=== PATIENT | female | born 1940 | race Caucasian/White ===

== ENCOUNTER 2017-06-05 20:03 | Observation (INO) ==
--- NOTE | 2017-06-05 20:27 | Emergency Department Note ---
Disposition Clinical Impression: Large hiatal hernia Dysphagia Qualifiers: Dysphagia type: unspecified Qualified Code(s): R13.10 - Dysphagia, unspecified Disposition: Admitted As Inpatient Condition: Serious Time of Disposition: 23:07 SOB HPI - General Chief Complaint: ED General Medical Stated Complaint: aspiration Time Seen by Provider: 06/05/17 20:15 Source: EMS Mode of arrival: EMS Limitations: no limitations Nursing Notes Reviewed: Yes Vital Signs Reviewed: Yes - History of Present Illness 68-year-old female on records review she has a history of hypertension, diabetes , dementia, Parkinson's, presents with cough shortness of breath frothy sputum. Patient states "I am coughing up phlegm" patient also had a dinner of the rice and chicken, she is unable to tolerate by mouth fluids and food right now because it comes back up and she coughs up phlegm. Patient reports epigastric/ retrosternal chest pain, she feels sharp localized, she states she felt this a few hours after eating. She denies fever chills weakness, she is a patient of a nursing facility squad report states that she is a DNR comfort care, looking at her records it looks like she does however I am unable to get a hold of the facility or any of her next of kin to discuss her DNR CC or DNR cca. Records review also shows that she was treated for acute pyelonephritis 2016 Pt Subjective Complaint: shortness of breath Severity: moderate Consistency/Duration: intermittent Known history of: diabetes, other (Parkinsons dementia) Treatment prior to arrival: none - Related Data Home Medications Medication Instructions Recorded Confirmed Ascorbic Acid [Vitamin C] 500 mg PO DAILY 08/12/15 08/12/15 Carbidopa/Levodopa 25/100 [Sinemet] 08/12/15 08/12/15 Cyanocobalamin (Vitamin B-12) 1,000 mcg PO 08/12/15 08/12/15 [Vitamin B-12] Dextromethorphan HBr/Quinidine 1 each PO QWEEK 08/12/15 08/12/15 [Nuedexta 20-10 mg Capsule] Dextromethorphan HBr/Quinidine 1 each PO QWEEK 08/12/15 08/12/15 [Nuedexta 20-10 mg Capsule] Donepezil HCl [Donepezil HCl Odt] 5 mg PO DAILY 08/12/15 08/12/15 Ergocalciferol (VITAMIN D2) 50,000 unit PO DAILY 08/12/15 08/12/15 [Vitamin D2 (50,000 UNIT)] Ferrous Sulfate 325 mg PO DAILY 08/12/15 08/12/15 Folic Acid 1 mg PO DAILY 08/12/15 08/12/15 Glycopyrrolate [Robinul] 1 mg PO BID 08/12/15 08/12/15 Lisinopril [Zestril] 10 mg PO DAILY 08/12/15 08/12/15 Promod 08/12/15 08/12/15 Rotigotine [Neupro] 08/12/15 08/12/15 Sennosides/Docusate Sodium [Senna 1 each PO DAILY 08/12/15 08/12/15 Plus] Previous Rx's Medication Instructions Recorded Cefdinir [Omnicef] 300 mg PO BID #20 capsule 07/18/15 Allergies Allergy/AdvReac Type Severity Reaction Status Date / Time No Known Allergies Allergy Verified 07/17/15 20:53 All systems ED: reviewed and negative except as stated. Review of Systems: As Per HPI Constitutional: Denies: fever, chills Cardiovascular: Denies: chest pain, palpitations Respiratory: Reports: cough, dyspnea Gastrointestinal: Reports: nausea Genitourinary: Denies: urgency, dysuria Musculoskeletal: Denies: back pain Integumentary: Denies: rash Neurological: Denies: headache Endocrine: Denies: fatigue Past Medical History - Past Medical History Attestation: Yes The following information was validated with the patient. Source: patient Medical history: Reports: dementia, hypertension Psychiatric history: Reports: depression - Social History Smoking Status: Never smoker Smokeless Tobacco Status: No Alcohol use: Reports: none Drug use: Reports: none Physical Exam Constitutional: Elderly female appears older than stated age. We will signs stable. Eyes: PERRLA, sclera anicteric ENT & Mouth: Frothy sputum coming out of the mouth. Patient is drooling. Neck: normal inspection, neck is supple Resp: Coarse breath sounds bilaterally. Transmitted upper airway sounds. CV: RRR, no m/g/r GI: normal inspection, soft, no guarding or rigidity Back: normal inspection, no tenderness to palpation Neuro: A&O3, ECS 15, CNII-XII grossly intact, BAKER MSK: no gross deformities, normal ROM UE and LE Skin: on limited exam, skin intact with no rashes or lesions - General Limitations: no limitations General appearance: alert Course Course Narrative: 68-year-old female DNR comfort care, discussed the patient's care with [facility], unable to get a hold of the patient's family, but she has been treated recently for with IV antibiotics for pyelonephritis, plan is to do basic workup chest x-ray, unable to tolerate by mouth fluids, possible esophageal foreign body. - Reevaluation(s) Reevaluation #1: I spoke with the patient's son, he agrees with supportive care even some limited interventions for comfort, is unclear about procedural or surgical, but would agree with NG tube placement, discussed the case at this time we do not feel the patient is indications for NG placement given protecting her airway sats on room air, discussed with Dr. Blevins who suggests NG tube placement, will consult surgeon Dr. Riley. Reevaluation #2: Called back Dr. Blevins, he states he will come by to evaluate the patient and determine about NG tube placement now or await surgical consult in AM, patient HD stable. Time: 22:57 - Consultations Consultation #1: Spoke with Dr. Riley, she states give IV glucagon after concern for esophageal foreign body or food bolus, may do NG tube, but if concern for Eso FB okay to wait at this time. Time: 22:30 Vital Signs Temperature 99 F 06/05/17 20:04 Pulse Rate 80 06/05/17 20:04 Respiratory Rate 18 06/05/17 20:04 Blood Pressure 183/103 06/05/17 20:04 O2 Sat by Pulse Oximetry 93 06/05/17 20:04 Temperature 98.3 F 06/05/17 23:22 Pulse Rate 87 06/05/17 22:19 Respiratory Rate 18 06/05/17 23:22 Blood Pressure 181/86 06/05/17 23:22 O2 Sat by Pulse Oximetry 94 06/05/17 22:19 Oxygen Delivery Oxygen Delivery Room Air Shortness of Breath/Dyspnea - MDM Narrative Medical decision making narrative: 68-year-old female with large hiatal hernia, gastroesophageal reflux up to the level of the thoracic inlet, after surgical medical consultation will admit the patient for observation, surgical consultation the morning, she is hemodynamically stable at the time of ED disposition. - Differential Diagnosis Likely: acute exacerbation of chronic obstructive airways disease - Medical Records Medical records reviewed: Yes I reviewed the patient's medical records. - Lab Data Lab results reviewed: Yes I reviewed the patient's lab results. Result diagrams: 06/05/17 20:37 06/05/17 20:37 Lab Results 06/05/17 06/05/17 06/05/17 Range/Units 20:37 20:37 20:37 WBC 9.0 (4.3-11.1) K/mcL RBC 4.52 (3.82-4.97) M/mcL Hgb 13.1 (11.5-15.4) g/dL Hct 39.7 (35.3-44.9) % MCV 87.8 (83.0-100.0) fL MCH 29.0 (28.0-33.3) pg MCHC 33.0 (31.6-35.5) g/dL RDW 14.0 (11.5-14.5) % Plt Count 280 (140-400) K/mcL MPV 10.0 (9.4-12.4) fL Immature Gran % 0.7 (0-4) % Seg Neutrophils % 72.6 % Lymphocytes % 22.1 % Monocytes % 3.5 % Eosinophils % 0.7 % Basophils % 0.4 % Neutrophils # 6.6 (1.6-8.9) K/mcL Lymphocytes # 2.0 (0.6-4.6) K/mcL Monocytes # 0.3 (0.0-1.3) K/mcL Eosinophils # 0.1 (0.0-0.6) K/mcL Basophils # 0.0 (0.0-0.2) K/mcL Sodium 138 (136-145) mEq/L Potassium 4.1 (3.5-4.5) mEq/L Chloride 103 (98-109) mEq/L Carbon Dioxide 24 (19-29) mEq/L BUN 14 (7-20) mg/dL Creatinine 0.72 (0.57-1.11) mg/dL Est GFR ( Amer) > 60 (> 60) Est GFR (Non-Af Amer) > 60 (> 60) BUN/Creatinine Ratio 19 (6-26) Glucose 129 H (70-99) mg/dL Calculated Osmolality 288 (280-300) Calcium 9.4 (8.6-10.8) mg/dL Troponin I 0.01 (0-0.03) ng/mL B-Natriuretic Peptide (0-100) pg/mL 06/05/17 Range/Units 20:37 WBC (4.3-11.1) K/mcL RBC (3.82-4.97) M/mcL Hgb (11.5-15.4) g/dL Hct (35.3-44.9) % MCV (83.0-100.0) fL MCH (28.0-33.3) pg MCHC (31.6-35.5) g/dL RDW (11.5-14.5) % Plt Count (140-400) K/mcL MPV (9.4-12.4) fL Immature Gran % (0-4) % Seg Neutrophils % % Lymphocytes % % Monocytes % % Eosinophils % % Basophils % % Neutrophils # (1.6-8.9) K/mcL Lymphocytes # (0.6-4.6) K/mcL Monocytes # (0.0-1.3) K/mcL Eosinophils # (0.0-0.6) K/mcL Basophils # (0.0-0.2) K/mcL Sodium (136-145) mEq/L Potassium (3.5-4.5) mEq/L Chloride (98-109) mEq/L Carbon Dioxide (19-29) mEq/L BUN (7-20) mg/dL Creatinine (0.57-1.11) mg/dL Est GFR ( Amer) (> 60) Est GFR (Non-Af Amer) (> 60) BUN/Creatinine Ratio (6-26) Glucose (70-99) mg/dL Calculated Osmolality (280-300) Calcium (8.6-10.8) mg/dL Troponin I (0-0.03) ng/mL B-Natriuretic Peptide 78 (0-100) pg/mL - Radiology Data Radiology results reviewed: Yes I reviewed the patient's radiology results. Chest X-Ray 06/05/17 20:19 IMPRESSION: 1. Large retrocardiac lucency probably represents a large hiatal hernia. 2. Cardiomegaly. 3. Otherwise, no acute abnormalities are seen in the chest. D/ / 06/05/2017 21:21:35 Reg Hidalgo MD / kasie Interpreting Provider: Reg Hidalgo MD Chest CT 06/05/17 21:16 IMPRESSION: Large hiatal hernia with near complete intrathoracic location of the stomach. There is severe gastroesophageal reflux of ingested material to the level of the thoracic inlet. D/ / 06/05/2017 21:56:06 Ruth Ann Bar MD / kasie Interpreting Provider: Ruth Ann Bar MD - EKG Data EKG attestation: Yes I reviewed and interpreted this EKG. EKG shows normal: Reports: sinus rhythm (89 bpm SD 159 QRS [address] segment elevations or depressions, sinus rhythm unchanged from previous EKG in 2013) Attestation Statement - Attestation Attestation: I examined this patient and my medical decision-making was reviewed with the Resident Physician. I agree with the documented findings, disposition and treatment plan as described except to the extent set forth below. Patient to ED for an ECF with dribbling and difficulty breathing. Onset today. States she will not eat. Patient has dementia, but she states she ate chicken and rice for dinner. She is afraid to eat now. On examination she sitting in bed. Her legs are contracted. She is drooling. Plan. Cardiac workup. Attempting to contact family at this time. Attempted by mouth challenge the patient states she is afraid to drink. X-ray and CT scan showed large hiatal hernia. She has good contents in her esophagus up to her thoracic inlet. NG tube contemplated. Concern as we are not sure why the patient has reflux of food contents into esophagus. Concern for possible stricture versus tumor. Concern for perforation of an NG tube was inserted. The patient is stable. She is in no respiratory distress. She is not aspirated. She will be kept nothing by mouth and admitted. Surgery is in consult.
[2017-06-05 20:45] LABS: Basophils % 0.4 %; Eosinophils # 0.1 K/mcL (0.0-0.6); Eosinophils % 0.7 %; Hematocrit 39.7 % (35.3-44.9); Hemoglobin 13.1 g/dL (11.5-15.4); Immature Granulocytes % 0.7 % (0-4); Lymphocytes % 22.1 %; Mean Corpuscular Volume 87.8 fL (83.0-100.0); Monocytes # 0.3 K/mcL (0.0-1.3); Monocytes % 3.5 %; Neutrophils # 6.6 K/mcL (1.6-8.9); Platelet Count 280 K/mcL (140-400); Red Blood Count 4.52 M/mcL (3.82-4.97); Segmented Neutrophils % 72.6 %
[2017-06-05 20:57] LABS: BUN/Creatinine Ratio 19 (6-26); Blood Urea Nitrogen 14 mg/dL (7-20); Calcium 9.4 mg/dL (8.6-10.8); Carbon Dioxide 24 mEq/L (19-29); Chloride 103 mEq/L (98-109); Glucose 129 mg/dL (70-99); Osmolality,Calculated 288 (280-300); Potassium 4.1 mEq/L (3.5-4.5); Sodium 138 mEq/L (136-145); eGFR For African Americans > 60 (> 60); eGFR For Non-African Americans > 60 (> 60)
[2017-06-05] MEDS ORDERED: Naloxone 0.4 MG/ML INJ IVP PRN (23:46)
--- NOTE | 2017-06-05 23:53 | Internal Med History&Physical ---
Date of Encounter: 06/06/17 Time of Encounter: 23:50 Assessment and Plan (1) Aspiration of food Current visit: Yes Status: Acute I suspect silent aspiration due to large hiatal hernia and food regurgitation. We will place patient nothing by mouth. We will ask respiratory therapy to suction the upper airways. Qualifiers: Encounter type: initial encounter Qualified Code(s): T17.890A - Other foreign object in other parts of respiratory tract causing asphyxiation, initial encounter (2) Parkinsons disease Current visit: Yes Status: Acute Resume her Sinemet when the patient tolerates oral diet. (3) DVT prophylaxis Current visit: Yes Status: Acute Subcutaneous heparin (4) Large hiatal hernia Current visit: Yes Status: Acute Large hiatal hernia evidenced by imaging studies. This could be causing dynamic gastric obstruction and vomiting with high risk of aspiration. Patient was given glucagon in the emergency department. Gen. surgery was consulted for consideration of emergent endoscopy with foreign body retrieval. Given the patient appeared stable and in no distress, it was decided that the patient does not currently require endoscopy and would likely benefit from conservative measures. (5) Dysphagia Current visit: Yes Status: Acute Dysphagia likely secondary to large hiatal hernia and esophageal obstruction. We will keep the patient nothing by mouth. Plan for upper endoscopy tomorrow by general surgery. Qualifiers: Dysphagia type: esophageal phase Qualified Code(s): R13.14 - Dysphagia, pharyngoesophageal phase Internal Medicine - H&P: HPI Chief complaint: Productive cough Admitted From: Emergency Dept Plans for Post Hospital Care: Transfer [facility] Facility History of present illness: Ms. Cerrato is a 76 year old female with multiple medical comorbidities including Parkinson's disease who was sent from the residential for evaluation of cough productive of white frothy sputum which started after dinner. Patient reported chest pain substernal sharp, moderate in intensity that started earlier this evening after she had a dinner of rice and chicken. Pain was also accompanied by production of frothy sputum. She also reports a faculty swallowing. Review of systems positive for tremors, drooling secondary to Parkinson's disease and memory impairment. Family history reviewed and found to be noncontributory Past Med Surg Social Fam HX - Past Medical History Medical history: dementia, hypertension Psychiatric history: depression - Social History Smoking Status: Never smoker Smokeless Tobacco Status: No Alcohol use: none Drug use: none - Family History Paternal Living Status: Unknown Hx Family Cardiac Disorders: No Hx Family Respiratory Disorders: Yes (tobacco abused) Hx Family Cancer: No Hx Family GI Disorders: No Hx Family Endocrine Disorder: No Hx Family Neuromuscular Disorders: No Hx Family Neurologic Disorders: No Hx Family HEENT Disorders: No Hx Family Autoimmune Disorders: No Internal Medicine - H&P: Meds Cefdinir [Omnicef] 300 mg PO BID #20 capsule 07/18/15 [Rx] Ascorbic Acid [Vitamin C] 500 mg PO DAILY 08/12/15 [History] Carbidopa/Levodopa 25/100 [Sinemet] 08/12/15 [History] Cyanocobalamin (Vitamin B-12) [Vitamin B-12] 1,000 mcg PO 08/12/15 [History] Dextromethorphan HBr/Quinidine [Nuedexta 20-10 mg Capsule] 1 each PO QWEEK 08/12 [History] Dextromethorphan HBr/Quinidine [Nuedexta 20-10 mg Capsule] 1 each PO QWEEK 08/12 [History] Donepezil HCl [Donepezil HCl Odt] 5 mg PO DAILY 08/12/15 [History] Ergocalciferol (VITAMIN D2) [Vitamin D2 (50,000 UNIT)] 50,000 unit PO DAILY 03/22 [History] Ferrous Sulfate 325 mg PO DAILY 08/12/15 [History] Folic Acid 1 mg PO DAILY 08/12/15 [History] Glycopyrrolate [Robinul] 1 mg PO BID 08/12/15 [History] Lisinopril [Zestril] 10 mg PO DAILY 08/12/15 [History] Promod 08/12/15 [History] Rotigotine [Neupro] 08/12/15 [History] Sennosides/Docusate Sodium [Senna Plus] 1 each PO DAILY 08/12/15 [History] Allergies No Known Allergies Allergy (Verified 07/17/15 20:53) All Systems PM: A 10-system review of systems was performed and is negative for pertinent findings except as documented above in the HPI. - Constitutional Vitals: Temp Pulse Resp BP Pulse Ox 98.3 F 87 18 181/86 94 06/05/17 23:22 06/05/17 22:19 06/05/17 23:22 06/05/17 23:22 06/05/17 22:19 General appearance: Present: A&O X 2 - Eye Eye exam: Present: PERRL, conjuntiva pink, sclera anicteric Pupils: Present: PERRL - Neck Neck exam general surgery: Present: supple, trachea midline. Absent: lymphadenopathy - Respiratory Respiratory exam: Present: rhonchi (Coarse breath sounds with upper airway gurgling sounds). Absent: accessory muscle use, rales, wheezes - Cardiovascular Cardiovascular exam: Present: RRR, +S1, +S2. Absent: diastolic murmur, gallop, rubs, systolic murmur - GI/Abdominal GI/Abdominal exam: Present: normal bowel sounds, soft, no peritoneal signs. Absent: distended, tenderness - Extremities Exam Extremities exam: Present: warm, radial pulses palpable and symetrical. Absent : calf tenderness, cyanotic, pedal edema - Skin Skin exam: Present: dry, intact Additional comments: Healed buttock decubitus ulcer Internal Med - H&P Results - Labs CBC & Chem 7: 06/05/17 20:37 06/05/17 20:37 - Impressions CT of the chest reviewed by myself shows a tortuous dilated dilated esophagus with food contents and large hiatal hernia containing the majority of the stomach.
[2017-06-06] MEDS ORDERED: Dextrose Gel 15 GM PO PRN ×2 (00:39)
[2017-06-06] MEDS ORDERED: *HR* Dextrose 50 % in Water (Syg) 50 ML SYRINGE IVP PRN (00:39)
[2017-06-06] MEDS ORDERED: D5% in Water 1,000 ML IVC PRN (00:39)
[2017-06-06] MEDS: D5% in 0.45% NACL 1,000 ML IVC SCH ×2 (01:55→18:05)
[2017-06-06 05:23] LABS: Basophils % 0.2 %; Hemoglobin 12.3 g/dL (11.5-15.4); Immature Granulocytes % 0.5 % (0-4); Lymphocytes % 7.7 %; Mean Corpuscular HGB Conc 32.4 g/dL (31.6-35.5); Mean Corpuscular Hemoglobin 28.6 pg (28.0-33.3); Mean Corpuscular Volume 88.4 fL (83.0-100.0); Mean Platelet Volume 10.8 fL (9.4-12.4); Monocytes # 0.3 K/mcL (0.0-1.3); Monocytes % 2.4 %; Neutrophils # 11.2 K/mcL (1.6-8.9); Platelet Count 291 K/mcL (140-400); Red Cell Distribution Width 14.1 % (11.5-14.5); Segmented Neutrophils % 89.2 %
[2017-06-06 05:40] LABS: BUN/Creatinine Ratio 21 (6-26); Blood Urea Nitrogen 14 mg/dL (7-20); Calcium 9.2 mg/dL (8.6-10.8); Carbon Dioxide 24 mEq/L (19-29); Chloride 101 mEq/L (98-109); Glucose 141 mg/dL (70-99); Magnesium 1.9 mg/dL (1.6-2.6); Osmolality,Calculated 285 (280-300); Potassium 4.2 mEq/L (3.5-4.5); Sodium 136 mEq/L (136-145); eGFR For African Americans > 60 (> 60); eGFR For Non-African Americans > 60 (> 60)
[2017-06-06] MEDS: Insulin LISPRO 300 UNITS/3 ML VIAL SQ SCH ×3 (06:22→20:16)
[2017-06-06] MEDS: Pantoprazole 40 MG VIAL IVP SCH (06:27)
--- NOTE | 2017-06-06 08:52 | Anesthesia Evaluation PreOp ---
Date of Encounter: 06/06/17 Time of Encounter: 08:50 - Past History Planned Operation: EGD Cardiac History: HTN (maintained on Lisinopril) Pulmonary History: Denies Any Significant HX [employer] History: Other (Parkinsonism maintained on Sinemet. Dementia maintained on Denezepil. Depression/Psuedobulbar Affect maitnained on Nuedexta [ Dextromethorphan/Quinidine]) Other Medical History: GERD (Lg Hiatal Hernia noted this admission) Anesthesia History: Past Anesthesia (Lumbar fixation, I&D/removal?? infected lumbar hardware,) Alcohol Use: none Drug use: none Medications and Allergies Cefdinir [Omnicef] 300 mg PO BID #20 capsule 07/18/15 [Rx] Ascorbic Acid [Vitamin C] 500 mg PO DAILY 08/12/15 [History] Carbidopa/Levodopa 25/100 [Sinemet] 08/12/15 [History] Cyanocobalamin (Vitamin B-12) [Vitamin B-12] 1,000 mcg PO 08/12/15 [History] Dextromethorphan HBr/Quinidine [Nuedexta 20-10 mg Capsule] 1 each PO QWEEK 08/12 [History] Dextromethorphan HBr/Quinidine [Nuedexta 20-10 mg Capsule] 1 each PO QWEEK 08/12 [History] Donepezil HCl [Donepezil HCl Odt] 5 mg PO DAILY 08/12/15 [History] Ergocalciferol (VITAMIN D2) [Vitamin D2 (50,000 UNIT)] 50,000 unit PO DAILY 03/22 [History] Ferrous Sulfate 325 mg PO DAILY 08/12/15 [History] Folic Acid 1 mg PO DAILY 08/12/15 [History] Glycopyrrolate [Robinul] 1 mg PO BID 08/12/15 [History] Lisinopril [Zestril] 10 mg PO DAILY 08/12/15 [History] Promod 08/12/15 [History] Rotigotine [Neupro] 08/12/15 [History] Sennosides/Docusate Sodium [Senna Plus] 1 each PO DAILY 08/12/15 [History] Allergies No Known Allergies Allergy (Verified 07/17/15 20:53) - Meds/Allergy Pre-op Review Medications Reviewed: Yes Allergies Reviewed: Yes Beta Blockers on Current Med List: No Anesthesia Results - Labs 06/06/17 03:06 06/06/17 03:06 Laboratory Tests 03/17/17 06/06/17 05:55 03:06 Est GFR (Non-Af Amer) > 60 Est Mean Plasma Glucose 100 Hemoglobin A1c 5.1 Laboratory Results Impressions Chest X-Ray 06/05/17 20:19 IMPRESSION: 1. Large retrocardiac lucency probably represents a large hiatal hernia. 2. Cardiomegaly. 3. Otherwise, no acute abnormalities are seen in the chest. D/ / 06/05/2017 21:21:35 Reg Hidalgo MD / kasie Interpreting Provider: Reg Hidalgo MD Chest CT 06/05/17 21:16 IMPRESSION: Large hiatal hernia with near complete intrathoracic location of the stomach. There is severe gastroesophageal reflux of ingested material to the level of the thoracic inlet. D/ / 06/05/2017 21:56:06 Ruth Ann Bar MD / kasie Interpreting Provider: Ruth Ann Bar MD Anesthesia Exam Vital Signs Temp Pulse Resp BP Pulse Ox 06/06/17 07:54 99.2 F 76 18 178/93 97 06/06/17 04:00 97.9 F 66 20 166/89 96 06/06/17 01:37 97 06/05/17 23:49 97.7 F 77 16 167/83 95 06/05/17 23:22 98.3 F 18 181/86 06/05/17 22:19 87 18 182/104 94 06/05/17 20:04 99 F 80 18 183/103 93 Intake and Output 06/05/17 06/06/17 06/06/17 23:59 07:59 15:59 Intake Total 0 / 0 0 / 0 Output Total 0 / 0 0 / 0 Balance 0 / 0 0 / 0 Intake: Oral 0 / 0 0 / 0 Output: Urine 0 / 0 0 / 0 Other: Weight 75.5 kg Blood Glucose* 239 119 Height: 5'5" Weight: 165# BMI= 28 NPO (# of Hours): MNoc - HEENT Pupil (Motor): Pupils equal Anesthesia Assess/Plan Modified Radha Scale for Level of Consciousness: Cooperative, oriented, and tranquil Anesthetic Plan: MAC Monitoring Plan: Standard Monitors Recovery Plan: PACU Anes Supervising Prov Stmt: Pt seen/evaluated, R&B Discussed, questions answered and consent obtained. Danielle Nash MD
--- NOTE | 2017-06-06 09:07 | General Surgery Consult Note ---
Date of Encounter: 06/06/17 Time of Encounter: 09:00 Assessment and Plan (1) HTN (hypertension) Current Visit: Yes Status: Chronic continue home medication Qualifiers: Hypertension type: essential hypertension Qualified Code(s): I10 - Essential (primary) hypertension (2) Large hiatal hernia Current Visit: Yes Status: Acute patient is tolerating liquids and her saliva will check an esophagram to see if there is any delay of flow of contrast into stomach, patient has expressed that she doesnt really want a surgery. I explained that if the stomach within her chest is causing an inflow obstruction it may need surgically repaired. If her dysphagia last evening was a one time deal (no previous complaints of dysphagia) and there is easy flow of contrast into the stomach we will advance her diet and see how she tolerates. This was discussed with patient and her son (on phone). (3) Dysphagia Current Visit: Yes Status: Resolved currently tolerating secretions and liquids Qualifiers: Dysphagia type: esophageal phase Qualified Code(s): R13.14 - Dysphagia, pharyngoesophageal phase (4) Parkinsons disease Current Visit: Yes Status: Acute ok continue home meds History of Present Illness Consult date: 06/06/17 Reason for consult: other History of present illness: Patient is a 76 yo female who presented to ED with chest pain after eating dinner at her long term. She had chicken and rice for dinner and per nursing she had emesis in ED with resultant food. CT scan was done which demonstrated a large intrathoracic stomach with possible fluid/contents in the thoracic esophagus. Per nursing the hospitalist attempted to place an NGT and got about 30cc gastric contents out and hit resistance and pulled the ngt. Today patient denies any chest discomfort and she is able to swallow her own secretions. She denies a history of dysphagia. Past Med Surg Social Fam HX - Past Medical History Source: patient, old records reviewed Medical history: hypertension, other (Parkinsons) Psychiatric history: anxiety, depression - Past Surgical History Surgical History: other (back surgery, cancerous skin lesion nose removed) - Social History Smoking Status: Never smoker Smokeless Tobacco Status: No Alcohol use: none Drug use: none - Family History Paternal Living Status: Unknown Hx Family Cardiac Disorders: No Hx Family Respiratory Disorders: Yes (tobacco abused) Hx Family Cancer: No Hx Family GI Disorders: No Hx Family Endocrine Disorder: No Hx Family Neuromuscular Disorders: No Hx Family Neurologic Disorders: No Hx Family HEENT Disorders: No Hx Family Autoimmune Disorders: No Medications and Allergies Cefdinir [Omnicef] 300 mg PO BID #20 capsule 07/18/15 [Rx] Ascorbic Acid [Vitamin C] 500 mg PO DAILY 08/12/15 [History] Carbidopa/Levodopa 25/100 [Sinemet] 08/12/15 [History] Cyanocobalamin (Vitamin B-12) [Vitamin B-12] 1,000 mcg PO 08/12/15 [History] Dextromethorphan HBr/Quinidine [Nuedexta 20-10 mg Capsule] 1 each PO QWEEK 08/12 [History] Dextromethorphan HBr/Quinidine [Nuedexta 20-10 mg Capsule] 1 each PO QWEEK 08/12 [History] Donepezil HCl [Donepezil HCl Odt] 5 mg PO DAILY 08/12/15 [History] Ergocalciferol (VITAMIN D2) [Vitamin D2 (50,000 UNIT)] 50,000 unit PO DAILY 03/22 [History] Ferrous Sulfate 325 mg PO DAILY 08/12/15 [History] Folic Acid 1 mg PO DAILY 08/12/15 [History] Glycopyrrolate [Robinul] 1 mg PO BID 08/12/15 [History] Lisinopril [Zestril] 10 mg PO DAILY 08/12/15 [History] Promod 08/12/15 [History] Rotigotine [Neupro] 08/12/15 [History] Sennosides/Docusate Sodium [Senna Plus] 1 each PO DAILY 08/12/15 [History] Allergies No Known Allergies Allergy (Verified 07/17/15 20:53) Review of Systems All systems PM: reviewed and no additional remarkable complaints except as stated All systems PM: A 10-system review of systems was performed and is negative for pertinent findings except as documented above in the HPI. General Surgery Exam Initial Vital Signs Temp Pulse Resp BP Pulse Ox 99 F 80 18 183/103 93 06/05/17 20:04 06/05/17 20:04 06/05/17 20:04 06/05/17 20:04 06/05/17 20:04 - General physical appearance well developed, well nourished, no distress, obese - Eyes PERRL, normal ocular movement - ENT normal mucosa, normocephalic - Neck trachea midline - Respiratory normal expansion, normal respiratory effort - Cardiovascular Cardiovascular exam: Present: RRR - Abdomen Abdomen general surgery: Present: bowel sounds present, soft, non tender. Absent: distended - Integumentary Integumentary general surgery: Present: warm and dry, no abnormal pigmentation - Neurologic Present: CN 2-12 grossly intact - Musculoskeletal Present: other (generalized weakness) - Psychiatric Psychiatric general surgery: Present: A&Ox3 Exam Initial Vital Signs Temp Pulse Resp BP Pulse Ox 99 F 80 18 183/103 93 06/05/17 20:04 06/05/17 20:04 06/05/17 20:04 06/05/17 20:04 06/05/17 20:04 Results - Labs 06/06/17 03:06 06/06/17 03:06 Abnormal lab results WBC 12.5 K/mcL (4.3-11.1) H 06/06/17 03:06 Neutrophils # 11.2 K/mcL (1.6-8.9) H 06/06/17 03:06 Glucose 141 mg/dL (70-99) H 06/06/17 03:06 Diabetes panel 06/06/17 Range/Units 03:06 Sodium 136 (136-145) mEq/L Potassium 4.2 (3.5-4.5) mEq/L Chloride 101 (98-109) mEq/L Carbon Dioxide 24 (19-29) mEq/L BUN 14 (7-20) mg/dL Creatinine 0.68 (0.57-1.11) mg/dL Glucose 141 H (70-99) mg/dL Calcium 9.2 (8.6-10.8) mg/dL Calcium panel 06/06/17 Range/Units 03:06 Calcium 9.2 (8.6-10.8) mg/dL Pituitary panel 06/06/17 Range/Units 03:06 Sodium 136 (136-145) mEq/L Potassium 4.2 (3.5-4.5) mEq/L Chloride 101 (98-109) mEq/L Carbon Dioxide 24 (19-29) mEq/L BUN 14 (7-20) mg/dL Creatinine 0.68 (0.57-1.11) mg/dL Glucose 141 H (70-99) mg/dL Calcium 9.2 (8.6-10.8) mg/dL Adrenal panel 06/06/17 Range/Units 03:06 Sodium 136 (136-145) mEq/L Potassium 4.2 (3.5-4.5) mEq/L Chloride 101 (98-109) mEq/L Carbon Dioxide 24 (19-29) mEq/L BUN 14 (7-20) mg/dL Creatinine 0.68 (0.57-1.11) mg/dL Glucose 141 H (70-99) mg/dL Calcium 9.2 (8.6-10.8) mg/dL All other labs normal. - Imaging CT scan - abdomen: report reviewed, image reviewed CT scan - pelvis: report reviewed, image reviewed Consult Discharge Plan - Plan Referrals: NONE,PCP [Primary Care Provider] -
[2017-06-06] MEDS: Levofloxacin 750 MG/150 ML 750 MG/150 ML BAG IVPB SCH (11:50)
--- NOTE | 2017-06-06 12:21 | Internal Med Progress Note ---
Date of Encounter: 06/06/17 Time of Encounter: 12:19 - Assessment and plan (1) Large hiatal hernia Current Visit: Yes Status: Acute Assessment and plan: Surgical evaluation appreciated f/u Esophagram, advance diet as per surgical recommendations after reviewing the esophagram results (2) Aspiration pneumonia Current Visit: Yes Status: Acute Assessment and plan: given leukocytosis and concern for aspiration s/p multiple vomiting episodes, will start empiric IV abx f/u blood cultures will repeat CXR as needed Qualifiers: Laterality: unspecified laterality Lung location: unspecified part of lung Qualified Code(s): J69.0 - Pneumonitis due to inhalation of food and vomit (3) Dysphagia Current Visit: Yes Status: Resolved Assessment and plan: NPO at this time pending surgical clearance Qualifiers: Dysphagia type: esophageal phase Qualified Code(s): R13.14 - Dysphagia, pharyngoesophageal phase (4) Aspiration of food Current Visit: Yes Status: Acute Qualifiers: Encounter type: initial encounter Qualified Code(s): T17.890A - Other foreign object in other parts of respiratory tract causing asphyxiation, initial encounter (5) Parkinsons disease Current Visit: Yes Status: Acute Assessment and plan: will restart home meds after verification (6) HTN (hypertension) Current Visit: Yes Status: Chronic Assessment and plan: Pt did not receive her home meds due to NPO status will restart home meds after verification and added Hydralazine 10gm IV q6h SBP> 150 will closely monitor BP Qualifiers: Hypertension type: essential hypertension Qualified Code(s): I10 - Essential (primary) hypertension (7) DVT prophylaxis Current Visit: Yes Status: Acute Assessment and plan: Heparin SQ - Subjective Interval history: Pt seen and examined at bedside. Resting in bed and denies any nausea, vomiting at this time. Pt evaluated by surgery in am and plan is to obtain esophagram and advance diet as per the study results. Pt noted to have large hiatal hernia causing obstruction with passage of food to the stomach, Dr. Riley recommends consultation with Dr. Dao in regards to repair. However at this time patient is refusing any surgical intervention. She is to remain NPO at this time - Constitutional Vitals: Temp Pulse Resp BP Pulse Ox 99.2 F 76 18 178/93 97 06/06/17 07:54 06/06/17 07:54 06/06/17 07:54 06/06/17 07:54 06/06/17 07:54 General appearance: Present: A&O X 3 (wheelchair bound at [place], contracted b /l LE), no acute distress, answers questions appropriately - Head Head exam: Present: atraumatic, normocephalic - Eye Eye exam: Present: conjuntiva pink, sclera anicteric - Respiratory Respiratory exam: Present: CTAB. Absent: accessory muscle use, rales, rhonchi, wheezes - Cardiovascular Cardiovascular exam: Present: RRR, +S1, +S2 - GI/Abdominal GI/Abdominal exam: Present: normal bowel sounds, soft, no peritoneal signs. Absent: distended, tenderness - Extremities Exam Extremities exam: Present: pedal edema, warm, radial pulses palpable and symetrical. Absent: calf tenderness - Neurological Exam Neurological exam: Present: alert, oriented X3 - Psychiatric Psychiatric exam: Present: normal affect, normal mood Internal Medicine: Result - Labs CBC & Chem 7: 06/06/17 03:06 06/06/17 03:06 Labs: Short CBC 06/06/17 Range/Units 03:06 WBC 12.5 H (4.3-11.1) K/mcL Hgb 12.3 (11.5-15.4) g/dL Hct 38.0 (35.3-44.9) % Plt Count 291 (140-400) K/mcL Neutrophils # 11.2 H (1.6-8.9) K/mcL BMP 06/06/17 03:06 Sodium 136 Potassium 4.2 Chloride 101 Carbon Dioxide 24 BUN 14 Creatinine 0.68 Glucose 141 H Calcium 9.2 Consult Discharge Plan - Plan Referrals: NONE,PCP [Primary Care Provider] -
[2017-06-06] MEDS: *HR* Heparin 5,000 UNIT/ML VIAL SQ SCH (18:10)
--- NOTE | 2017-06-06 19:00 | Electrocardiograph Report ---
[place] [id number] Test Date: 2017-06-05 Pat Name: Tatiana Cerrato Department: 103 Room: 2NE17 Gender: F House Cleaner: MARITA : 1940 Requested By: Solitario Angel Order Number: [id number] Reading MD: Paresh Berrios MD Measurements Intervals [place] Rate: 89 P: 25 MD: 159 QRS: -19 QRSD: 83 T: 7 QT: 363 QTc: 410 Interpretive Statements SINUS RHYTHM BASELINE ARTIFACT Poor R wave progression Electronically Signed On 06-06-2017 18:59:39 EDT by Paresh Berrios MD
[2017-06-06] MEDS: Ondansetron 4 MG/2 ML VIAL IVP PRN (20:15)
[2017-06-06] MEDS: *HR* Morphine 2 MG/ML SYRINGE IVP PRN (21:36)
[2017-06-07] MEDS: Insulin LISPRO 300 UNITS/3 ML VIAL SQ SCH ×4 (00:26→20:23)
[2017-06-07] MEDS: *HR* Morphine 2 MG/ML SYRINGE IVP PRN (05:06)
[2017-06-07] MEDS: *HR* Heparin 5,000 UNIT/ML VIAL SQ SCH ×2 (05:06→16:30)
[2017-06-07 05:13] LABS: Basophils % 0.3 %; Eosinophils % 0.1 %; Hematocrit 35.6 % (35.3-44.9); Hemoglobin 11.6 g/dL (11.5-15.4); Immature Granulocytes % 0.5 % (0-4); Lymphocytes # 1.5 K/mcL (0.6-4.6); Mean Corpuscular HGB Conc 32.6 g/dL (31.6-35.5); Mean Corpuscular Hemoglobin 28.9 pg (28.0-33.3); Mean Corpuscular Volume 88.6 fL (83.0-100.0); Mean Platelet Volume 10.5 fL (9.4-12.4); Monocytes # 0.5 K/mcL (0.0-1.3); Monocytes % 7.2 %; Neutrophils # 5.2 K/mcL (1.6-8.9); Platelet Count 270 K/mcL (140-400); Red Blood Count 4.02 M/mcL (3.82-4.97); Red Cell Distribution Width 14.2 % (11.5-14.5); Segmented Neutrophils % 70.9 %
[2017-06-07] MEDS: Pantoprazole 40 MG VIAL IVP SCH (05:22)
[2017-06-07 05:27] LABS: BUN/Creatinine Ratio 13 (6-26); Blood Urea Nitrogen 9 mg/dL (7-20); Calcium 9.2 mg/dL (8.6-10.8); Carbon Dioxide 27 mEq/L (19-29); Chloride 99 mEq/L (98-109); Glucose 115 mg/dL (70-99); Osmolality,Calculated 276 (280-300); Phosphorous 3.2 mg/dL (2.3-4.7); Potassium 4.3 mEq/L (3.5-4.5); Sodium 133 mEq/L (136-145); eGFR For African Americans > 60 (> 60); eGFR For Non-African Americans > 60 (> 60)
[2017-06-07] MEDS: Levofloxacin 750 MG/150 ML 750 MG/150 ML BAG IVPB SCH (08:14)
[2017-06-07] MEDS: Ondansetron 4 MG/2 ML VIAL IVP PRN (08:30)
--- NOTE | 2017-06-07 11:28 | Internal Med Progress Note ---
Date of Encounter: 06/07/17 Time of Encounter: 11:27 - Assessment and plan (1) Large hiatal hernia Current Visit: Yes Status: Acute Assessment and plan: Esophagram noted diet advanced to full liquids awaiting surgical follow up for d/c planning pt is from [facility] and will return to [place] after discharge (2) Aspiration pneumonia Current Visit: Yes Status: Acute Assessment and plan: continue empiric abx for 7 days (Day 2/7) f/u blood cultures will repeat CXR as needed Qualifiers: Aspiration pneumonia type: unspecified Laterality: unspecified laterality Lung location: unspecified part of lung Qualified Code(s): J69.0 - Pneumonitis due to inhalation of food and vomit (3) Dysphagia Current Visit: Yes Status: Resolved Assessment and plan: advanced to full liquids by surgery f/u speech therapy evaluation Qualifiers: Dysphagia type: esophageal phase Qualified Code(s): R13.14 - Dysphagia, pharyngoesophageal phase (4) Aspiration of food Current Visit: Yes Status: Acute Qualifiers: Encounter type: initial encounter Qualified Code(s): T17.890A - Other foreign object in other parts of respiratory tract causing asphyxiation, initial encounter (5) Parkinsons disease Current Visit: Yes Status: Acute Assessment and plan: continue home medications (6) HTN (hypertension) Current Visit: Yes Status: Chronic Assessment and plan: continue home medications Hydralazine 10gm IV q6h SBP>150 will closely monitor BP Qualifiers: Hypertension type: essential hypertension Qualified Code(s): I10 - Essential (primary) hypertension (7) DVT prophylaxis Current Visit: Yes Status: Acute Assessment and plan: Heparin SQ - Subjective Interval history: Pt seen and examined at bedside. Resting in bed and denies any discomfort at this time. Wheelchair and bedbound at baseline. Esophagram reported large hiatal hernia with entirely intrathoracic stomach. Delayed gastric emptying study consistent with gastroparesis, no evidence of gastric outlet obstruction. spontaneous gastroesophagel reflux. Diet advanced to full liquids by surgery. Awaiting follow up. - Constitutional Vitals: Temp Pulse Resp BP Pulse Ox 98.2 F 54 18 150/77 98 06/07/17 07:00 06/07/17 07:00 06/07/17 07:00 06/07/17 07:00 06/07/17 07:00 General appearance: Present: A&O X 3 (wheelchair bound at [place], contracted b /l LE), no acute distress, answers questions appropriately - Head Head exam: Present: atraumatic, normocephalic - Eye Eye exam: Present: conjuntiva pink, sclera anicteric - Respiratory Respiratory exam: Absent: respiratory distress, wheezes - Cardiovascular Cardiovascular exam: Present: RRR, +S1, +S2. Absent: diastolic murmur, gallop, rubs, systolic murmur - GI/Abdominal GI/Abdominal exam: Present: normal bowel sounds, soft, no peritoneal signs. Absent: distended, tenderness - Extremities Exam Extremities exam: Present: pedal edema (contracted b/l LE ), warm, radial pulses palpable and symetrical. Absent: calf tenderness - Neurological Exam Neurological exam: Present: alert, oriented X3 - Psychiatric Psychiatric exam: Present: normal affect, normal mood Internal Medicine: Result - Labs CBC & Chem 7: 06/07/17 04:17 06/07/17 04:17 Labs: Short CBC 06/07/17 Range/Units 04:17 WBC 7.4 (4.3-11.1) K/mcL Hgb 11.6 (11.5-15.4) g/dL Hct 35.6 (35.3-44.9) % Plt Count 270 (140-400) K/mcL Neutrophils # 5.2 (1.6-8.9) K/mcL BMP 06/07/17 04:17 Sodium 133 L Potassium 4.3 Chloride 99 Carbon Dioxide 27 BUN 9 Creatinine 0.68 Glucose 115 H Calcium 9.2 - Impressions Impressions KUB X-Ray 06/06/17 00:00 IMPRESSION: Progression of contrast material from the stomach into the small bowel. No evidence of gastric outlet obstruction. Large hiatal hernia with intrathoracic stomach. D/ / Ambrose Weir MD / Ambrose Weir MD Interpreting Provider: Ambrose Weir MD Barium Swallow X-Ray 06/06/17 09:21 IMPRESSION: 1. Large hiatal hernia with entirely intrathoracic stomach. 2. Delayed gastric emptying compatible with gastroparesis. No convincing fluoroscopic evidence of gastric outlet obstruction. 3. Spontaneous gastroesophageal reflux. D/ / Henrry Morales MD / Henrry Morales MD Interpreting Provider: Henrry Morales MD Consult Discharge Plan - Plan Additional Instructions: pcp requested Referrals: Indy Quach, CAREER TECHNICAL SUPERVISOR [Advanced Practice Nurse] -
--- NOTE | 2017-06-07 15:33 | General Surgery Progress Note ---
<Pj Miller - Last Filed: 06/07/17 15:30> Date of Encounter: 06/07/17 Time of Encounter: 15:30 - Assessment and Plan (1) Large hiatal hernia Current Visit: Yes Status: Acute Patient declines to have surgery Advance diet as tolerated to recommendations of speech therapy She can follow up with us in the future if she decides to pursue surgery Surgery will sign off at this time. Thank you for involving us in this patient' s care. Please feel free to contact us with any questions. (2) Dysphagia Current Visit: Yes Status: Resolved See plan of care above. Qualifiers: Dysphagia type: esophageal phase Qualified Code(s): R13.14 - Dysphagia, pharyngoesophageal phase (3) DVT prophylaxis Current Visit: Yes Status: Acute Continue heparin subq Subjective Patient reports: no new complaints, feels better, tolerating liquids well, flatus, bowel movement, afebrile Objective Vital Signs - Last 8 Hours Temp Pulse Resp BP Pulse Ox 06/07/17 15:00 97.6 F 74 16 147/71 96 Intake and Output 06/06/17 06/07/17 06/07/17 23:59 07:59 15:59 Intake Total 237 / 237 1550 / 1550 350 / 350 Output Total 0 / 0 0 / 0 Balance 237 / 237 1550 / 1550 350 / 350 Intake: IV Fluids 1000 / 1000 150 / 150 D5% And 0.45% Nacl 1000 1000 / 1000 Ml Bag 1,000 ML @ 75 mls/ hr IVC .[id number] RANULFO Rx#: [id number] Levaquin Premix 750mg/150 150 / 150 mL 750 mg In 150 ml @ 100 mls/hr IVPB DAILY RANULFO Rx#:[id number] Oral 0 / 0 550 / 550 200 / 200 Other 237 / 237 Output: Urine 0 / 0 0 / 0 Other: Meal Dinner Lunch Percent of Meal Consumed 0% Stool Size Smear Smear Stool Consistency soft loose Stool Color Black Green # Urine Diapers 1 # Bowel Movements 1 1 # Bowel Movement Diapers 1 Weight 75.5 kg 75.5 kg Blood Glucose* 138 138 99 Patient Weight 06/07/17 23:59 Weight 75.5 kg - General physical appearance well developed, well nourished, no distress - Eyes normal ocular movement - ENT atraumatic, normocephalic - Neck Neck exam: trachea midline - Respiratory normal expansion, normal respiratory effort - Cardiovascular Cardiovascular exam: Present: RRR - Abdomen Abdomen: Present: bowel sounds present, soft, non tender - Musculoskeletal normal posture - Psychiatric speech is normal - Labs 06/07/17 04:17 06/07/17 04:17 Diabetes panel 06/07/17 Range/Units 04:17 Sodium 133 L (136-145) mEq/L Potassium 4.3 (3.5-4.5) mEq/L Chloride 99 (98-109) mEq/L Carbon Dioxide 27 (19-29) mEq/L BUN 9 (7-20) mg/dL Creatinine 0.68 (0.57-1.11) mg/dL Glucose 115 H (70-99) mg/dL Calcium 9.2 (8.6-10.8) mg/dL Calcium panel 06/07/17 Range/Units 04:17 Calcium 9.2 (8.6-10.8) mg/dL Phosphorus 3.2 (2.3-4.7) mg/dL Pituitary panel 06/07/17 Range/Units 04:17 Sodium 133 L (136-145) mEq/L Potassium 4.3 (3.5-4.5) mEq/L Chloride 99 (98-109) mEq/L Carbon Dioxide 27 (19-29) mEq/L BUN 9 (7-20) mg/dL Creatinine 0.68 (0.57-1.11) mg/dL Glucose 115 H (70-99) mg/dL Calcium 9.2 (8.6-10.8) mg/dL Adrenal panel 06/07/17 Range/Units 04:17 Sodium 133 L (136-145) mEq/L Potassium 4.3 (3.5-4.5) mEq/L Chloride 99 (98-109) mEq/L Carbon Dioxide 27 (19-29) mEq/L BUN 9 (7-20) mg/dL Creatinine 0.68 (0.57-1.11) mg/dL Glucose 115 H (70-99) mg/dL Calcium 9.2 (8.6-10.8) mg/dL Consult Discharge Plan - Plan Additional Instructions: pcp requested Referrals: Indy Quach CNP [Advanced Practice Nurse] - <Kamini Riley - Last Filed: 06/07/17 17:42> Date of Encounter: 06/07/17 - Assessment and Plan (1) HTN (hypertension) Current Visit: Yes Status: Chronic Qualifiers: Hypertension type: essential hypertension Qualified Code(s): I10 - Essential (primary) hypertension (2) Large hiatal hernia Current Visit: Yes Status: Acute patient does not want surgery tolerating diet advance as tolerates, general surgery signing off (3) Dysphagia Current Visit: Yes Status: Resolved Qualifiers: Dysphagia type: esophageal phase Qualified Code(s): R13.14 - Dysphagia, pharyngoesophageal phase (4) Parkinsons disease Current Visit: Yes Status: Acute Subjective Patient reports: no new complaints, feels better, tolerating liquids well Objective Vital Signs - Last 8 Hours Temp Pulse Resp BP Pulse Ox 06/07/17 15:00 97.6 F 74 16 147/71 96 Intake and Output 06/07/17 06/07/17 06/07/17 07:59 15:59 23:59 Intake Total 1550 / 1550 350 / 350 Output Total 0 / 0 Balance 1550 / 1550 350 / 350 Intake: IV Fluids 1000 / 1000 150 / 150 D5% And 0.45% Nacl 1000 1000 / 1000 Ml Bag 1,000 ML @ 75 mls/ hr IVC .[id number] [facility]ANULFO Rx#: [id number] Levaquin Premix 750mg/150 150 / 150 mL 750 mg In 150 ml @ 100 mls/hr IVPB DAILY RANULFO Rx#:[id number] Oral 550 / 550 200 / 200 Output: Urine 0 / 0 Other: Meal Lunch Stool Size Smear Stool Consistency loose Stool Color Green # Bowel Movements 1 Weight 75.5 kg 75.5 kg Blood Glucose* 138 99 Patient Weight 06/07/17 23:59 Weight 75.5 kg - General physical appearance well developed, well nourished, no distress - Eyes normal ocular movement - ENT normocephalic - Neck Neck exam: trachea midline - Respiratory normal expansion, normal respiratory effort - Cardiovascular Cardiovascular exam: Present: RRR - Abdomen Abdomen: Present: bowel sounds present, soft, non tender - Integumentary no growths - Neurologic CN 2-12 grossly intact - Musculoskeletal normal posture - Psychiatric oriented to time, oriented to person, speech is normal, memory intact - Labs 06/07/17 04:17 06/07/17 04:17 Diabetes panel 06/07/17 Range/Units 04:17 Sodium 133 L (136-145) mEq/L Potassium 4.3 (3.5-4.5) mEq/L Chloride 99 (98-109) mEq/L Carbon Dioxide 27 (19-29) mEq/L BUN 9 (7-20) mg/dL Creatinine 0.68 (0.57-1.11) mg/dL Glucose 115 H (70-99) mg/dL Calcium 9.2 (8.6-10.8) mg/dL Calcium panel 06/07/17 Range/Units 04:17 Calcium 9.2 (8.6-10.8) mg/dL Phosphorus 3.2 (2.3-4.7) mg/dL Pituitary panel 06/07/17 Range/Units 04:17 Sodium 133 L (136-145) mEq/L Potassium 4.3 (3.5-4.5) mEq/L Chloride 99 (98-109) mEq/L Carbon Dioxide 27 (19-29) mEq/L BUN 9 (7-20) mg/dL Creatinine 0.68 (0.57-1.11) mg/dL Glucose 115 H (70-99) mg/dL Calcium 9.2 (8.6-10.8) mg/dL Adrenal panel 06/07/17 Range/Units 04:17 Sodium 133 L (136-145) mEq/L Potassium 4.3 (3.5-4.5) mEq/L Chloride 99 (98-109) mEq/L Carbon Dioxide 27 (19-29) mEq/L BUN 9 (7-20) mg/dL Creatinine 0.68 (0.57-1.11) mg/dL Glucose 115 H (70-99) mg/dL Calcium 9.2 (8.6-10.8) mg/dL - Attending Attestation I examined this patient and my medical decision-making was reviewed with the Resident Physician. I agree with the documented findings, disposition and treatment plan as described except to the extent set forth below.
[2017-06-07] MEDS: Carbidopa/Levodopa 25/100 TABLET PO SCH ×2 (16:30→20:30)
[2017-06-07] MEDS: Cholecalciferol (D-3) 1,000 UNIT TABLET PO SCH (16:30)
[2017-06-08] MEDS: Carbidopa/Levodopa 25/100 TABLET PO SCH ×3 (00:31→12:46)
[2017-06-08] MEDS: Insulin LISPRO 300 UNITS/3 ML VIAL SQ SCH ×2 (00:37→06:07)
[2017-06-08] MEDS: Pantoprazole 40 MG VIAL IVP SCH (06:07)
[2017-06-08] MEDS: *HR* Heparin 5,000 UNIT/ML VIAL SQ SCH (06:07)
[2017-06-08 06:51] LABS: BUN/Creatinine Ratio 12 (6-26); Blood Urea Nitrogen 9 mg/dL (7-20); Calcium 9.2 mg/dL (8.6-10.8); Carbon Dioxide 27 mEq/L (19-29); Chloride 103 mEq/L (98-109); Glucose 92 mg/dL (70-99); Osmolality,Calculated 284 (280-300); Phosphorous 3.6 mg/dL (2.3-4.7); Potassium 3.7 mEq/L (3.5-4.5); Sodium 138 mEq/L (136-145); eGFR For African Americans > 60 (> 60); eGFR For Non-African Americans > 60 (> 60)
[2017-06-08 07:04] LABS: Basophils % 0.3 %; Eosinophils % 0.3 %; Hemoglobin 11.7 g/dL (11.5-15.4); Immature Granulocytes % 0.5 % (0-4); Lymphocytes % 33.6 %; Mean Corpuscular HGB Conc 32.5 g/dL (31.6-35.5); Mean Corpuscular Hemoglobin 28.9 pg (28.0-33.3); Mean Corpuscular Volume 88.9 fL (83.0-100.0); Mean Platelet Volume 10.4 fL (9.4-12.4); Monocytes # 0.6 K/mcL (0.0-1.3); Monocytes % 9.4 %; Neutrophils # 3.3 K/mcL (1.6-8.9); Platelet Count 245 K/mcL (140-400); Red Blood Count 4.05 M/mcL (3.82-4.97); Red Cell Distribution Width 14.1 % (11.5-14.5); Segmented Neutrophils % 55.9 %
[2017-06-08] MEDS: Cholecalciferol (D-3) 1,000 UNIT TABLET PO SCH (08:13)
[2017-06-08] MEDS: Levofloxacin 750 MG/150 ML 750 MG/150 ML BAG IVPB SCH (08:15)
--- NOTE | 2017-06-08 08:55 | Discharge Summary ---
Date of Encounter: 06/08/17 Time of Encounter: 16:31 - Discharge Diagnosis (1) Large hiatal hernia Priority: Secondary Status: Acute (2) Dysphagia Priority: Secondary Status: Resolved Qualifiers: Dysphagia type: esophageal phase Qualified Code(s): R13.14 - Dysphagia, pharyngoesophageal phase (3) Parkinsons disease Priority: Secondary Status: Acute (4) HTN (hypertension) Priority: Secondary Status: Chronic Qualifiers: Hypertension type: essential hypertension Qualified Code(s): I10 - Essential (primary) hypertension (5) Aspiration pneumonia Priority: Primary Status: Acute Qualifiers: Aspiration pneumonia type: unspecified Laterality: unspecified laterality Lung location: unspecified part of lung Qualified Code(s): J69.0 - Pneumonitis due to inhalation of food and vomit - Discharge Medications Prescriptions: levoFLOXacin [Levaquin] 750 mg PO DAILY #8 tablet Omeprazole Magnesium [Prilosec Otc] 20 mg PO DAILY #30 tablet.dr Home Medications: Ascorbic Acid [Vitamin C] 500 mg PO DAILY 08/12/15 [History] Carbidopa/Levodopa 25/100 [Sinemet] 1 tab PO 5XD 08/12/15 [History] Cyanocobalamin (Vitamin B-12) [Vitamin B12] 1,000 mcg PO DAILY 08/12/15 [History ] Dextromethorphan HBr/Quinidine [Nuedexta 20-10 mg Capsule] 1 cap PO BID [History] Donepezil HCl [Donepezil HCl Odt] 5 mg PO DAILY 08/12/15 [History] Ferrous Sulfate 325 mg PO DAILY 08/12/15 [History] Folic Acid 1 mg PO DAILY 08/12/15 [History] Glycopyrrolate [Robinul] 1 mg PO BID 08/12/15 [History] Lisinopril [Zestril] 10 mg PO DAILY 08/12/15 [History] Rotigotine [Neupro] 1 patch TD DAILY 08/12/15 [History] Sennosides/Docusate Sodium [Senna Plus] 1 tab PO DAILY 08/12/15 [History] Acetaminophen [Tylenol] 975 mg PO TID PRN 06/07/17 [History] Ascorbate Calcium [Vitamin C] 500 mg PO DAILY 06/07/17 [History] Bismuth Subsalicylate [PEPTO-BISMOL (262mg/15mL) Susp] 10 ml PO AD PRN MDD 4 doses 06/07/17 [History] Cholecalciferol (Vitamin D3) [Vitamin D3] 5,000 unit PO QWEEK 06/07/17 [History] GuaiFENesin/Dextromethorphan [Tussin Dm Syrup] 10 ml PO QID PRN 06/07/17 [ History] Magnesium Hydroxide [Milk of Magnesia] 30 ml PO Q4H PRN 06/07/17 [History] Ondansetron HCl [Zofran] 4 mg PO Q4H PRN 06/07/17 [History] Phenol [Sore Throat [place]] 1 spr PO Q2H PRN 06/07/17 [History] Omeprazole Magnesium [Prilosec Otc] 20 mg PO DAILY #30 tablet. 06/08/17 [Rx] levoFLOXacin [Levaquin] 750 mg PO DAILY #8 tablet 06/08/17 [Rx] Allergies/Adverse Reactions: Allergies No Known Allergies Allergy (Verified 07/17/15 20:53) Date of admission: 06/05/17 22:44 Primary care physician: PCP NONE Consults: 06/06/17 00:15 Consult to Delinquent Notice Machine Operator [CONS] Routine Reason for SW Consult: Return to ECF on discharge 06/07/17 11:29 Consult to Speech Therapy [CONS] Stat Comment: Evaluate, develop and implement POC Reason for Consult: dysphagia Call Completed: Yes Discharging clinician: Jose Pizarro Anticipated date of discharge: 06/08/17 - Patient Status Disposition: Transfer SNF Condition: Serious Overall status at discharge: patient is progressing back to baseline - Discharge Instructions Instructions: Omeprazole (By mouth), Levofloxacin (By mouth), Pneumonia (DC) Follow Up With: Indy Quach [facility]NER [Advanced Practice Nurse] - Additional Instructions: pcp requested - Diet and Activity Activity: resume usual activities as tolerated Diet: advance to your usual diet (Please follow the speech and swallowing evaluation for the texture of diet patient has history of dysphagia) Hospital course: Ms. Cerrato is a 76 year old female with past medical history significant for parkinsonism. She was admitted for aspiration pneumonia. She also had complained of dysphagia resulting in further workup showing large hiatal hernia involving almost complete intrathoracic stomach with signs of delayed gastric emptying/gastroparesis but no gastric outlet obstruction. Surgical consultation seek. Patient declined surgery at this point. With adjustment of diet conservative management will be pursued.. She has been on IV antibiotics for more than 48 hours and can be switched to oral antibiotics. As she is a senior living resident she will return to the senior living. - Time Spent with Patient Total time spent providing and/or coordinating discharge services: Greater than 30 minutes - Constitutional Vitals: Temp Pulse Resp BP Pulse Ox 98.9 F 70 18 168/80 99 06/08/17 06:50 06/08/17 06:50 06/08/17 06:50 06/08/17 06:50 06/08/17 06:50 General appearance: Present: A&O X 3 (wheelchair bound at [place], contracted b /l LE), no acute distress, answers questions appropriately - Head Head exam: Present: atraumatic, normocephalic - Eye Eye exam: Present: PERRL, conjuntiva pink, sclera anicteric Pupils: Present: PERRL - Neck Neck exam general surgery: Present: supple, trachea midline. Absent: lymphadenopathy - Respiratory Respiratory exam: Present: CTAB. Absent: accessory muscle use, rales, rhonchi, wheezes - Cardiovascular Cardiovascular exam: Present: RRR, +S1, +S2. Absent: diastolic murmur, gallop, rubs, systolic murmur - GI/Abdominal GI/Abdominal exam: Present: normal bowel sounds, soft, no peritoneal signs. Absent: distended, tenderness - Extremities Exam Extremities exam: Present: warm, radial pulses palpable and symetrical. Absent : calf tenderness, cyanotic, pedal edema - Neurological Exam Neurological exam: Present: CN II-XII intact, oriented X3, no focal deficits. Absent: pronater drift, facial droop, speech deficit - Skin Skin exam: Present: dry, intact
[2017-06-08] MEDS ORDERED: Sennosides/Docusate Sodium TABLET PO SCH (09:00)
[2017-06-08] MEDS ORDERED: (Rotigotine [Neupro] 1 PATCH) TP SCH (09:00)
[2017-06-08] MEDS ORDERED: Folic Acid 1 MG TABLET PO SCH (09:00)
[2017-06-08] MEDS ORDERED: Cyanocobalamin (B-12) 1,000 MCG TABLET PO SCH (09:00)
[2017-06-08] MEDS ORDERED: Ascorbic Acid 500 MG TABLET PO SCH (09:00)
--- NOTE | 2017-06-08 09:04 | Physician Discharge Referral ---
[facility] Referral Info Provider in Charge: ferdinand Provider in Charge after Transfer: PCP Institutional Level of Care: Skilled (Patient has dysphagia and aspiration risk please add just tight according to speech therapy's recommendation from hospital ) - Diagnosis (1) Large hiatal hernia Status: Acute (2) Dysphagia Status: Resolved (3) Parkinsons disease Status: Acute (4) HTN (hypertension) Status: Chronic (5) Aspiration pneumonia Status: Acute - Transfer Medications Prescriptions: levoFLOXacin [Levaquin] 750 mg PO DAILY #8 tablet Omeprazole Magnesium [Prilosec Otc] 20 mg PO DAILY #30 tablet.dr Home Medications: Ascorbic Acid [Vitamin C] 500 mg PO DAILY 08/12/15 [History] Carbidopa/Levodopa 25/100 [Sinemet] 1 tab PO 5XD 08/12/15 [History] Cyanocobalamin (Vitamin B-12) [Vitamin B12] 1,000 mcg PO DAILY 08/12/15 [History ] Dextromethorphan HBr/Quinidine [Nuedexta 20-10 mg Capsule] 1 cap PO BID [History] Donepezil HCl [Donepezil HCl Odt] 5 mg PO DAILY 08/12/15 [History] Ferrous Sulfate 325 mg PO DAILY 08/12/15 [History] Folic Acid 1 mg PO DAILY 08/12/15 [History] Glycopyrrolate [Robinul] 1 mg PO BID 08/12/15 [History] Lisinopril [Zestril] 10 mg PO DAILY 08/12/15 [History] Rotigotine [Neupro] 1 patch TD DAILY 08/12/15 [History] Sennosides/Docusate Sodium [Senna Plus] 1 tab PO DAILY 08/12/15 [History] Acetaminophen [Tylenol] 975 mg PO TID PRN 06/07/17 [History] Ascorbate Calcium [Vitamin C] 500 mg PO DAILY 06/07/17 [History] Bismuth Subsalicylate [PEPTO-BISMOL (262mg/15mL) Susp] 10 ml PO AD PRN MDD 4 doses 06/07/17 [History] Cholecalciferol (Vitamin D3) [Vitamin D3] 5,000 unit PO QWEEK 06/07/17 [History] GuaiFENesin/Dextromethorphan [Tussin Dm Syrup] 10 ml PO QID PRN 06/07/17 [ History] Magnesium Hydroxide [Milk of Magnesia] 30 ml PO Q4H PRN 06/07/17 [History] Ondansetron HCl [Zofran] 4 mg PO Q4H PRN 06/07/17 [History] Phenol [Sore Throat [place]] 1 spr PO Q2H PRN 06/07/17 [History] Omeprazole Magnesium [Prilosec Otc] 20 mg PO DAILY #30 tablet. 06/08/17 [Rx] levoFLOXacin [Levaquin] 750 mg PO DAILY #8 tablet 06/08/17 [Rx] Allergies/Adverse Reactions: Allergies No Known Allergies Allergy (Verified 07/17/15 20:53) - Respiratory Orders Smoking Cessation: Smoking cessation has been advised. For more information, call the [place] Tobacco Quit Line at 7-147-KTUVNOW. CERTIFICATION: I certify that the transfer of the above named patient to an Extended Care Facility is necessary for the continuing treatment of the diagnosis listed. The above information is true and accurate reflection of patient's current condition. Confidential - Redisclosure prohibited without a patient's written consent.
[2017-06-08 15:59] VITALS: BP 127/79
[2017-06-08] MEDS ORDERED: Insulin LISPRO 300 UNITS/3 ML VIAL SQ SCH ×2 (16:30→21:00)
[2017-06-09] MEDS ORDERED: levoFLOXacin 750 MG TABLET PO SCH (09:00)
== END 2017-06-08 18:59 ==
LOC: 2NENU 20:03 → EMEROO 20:03 → 2NENU 23:23
PROVIDERS: ADMIT Internal Medicine; ATTEND Internal Medicine

== ENCOUNTER 2020-10-18 10:53 | Inpatient (IN) ==
[2020-10-18] MEDS ORDERED: Isovue-370 500 ML BOTTLE IVP ONE (11:29)
[2020-10-18 12:29] LABS: Bacteria,Urine Many per hpf (None-Few); Bilirubin,Urine Negative (Negative); Blood,Urine Negative (Negative); Clarity,Urine Ex.Turbid (Clear); Color,Urine Yellow (Yellow); Glucose,Urine (UA) Normal (Normal); Ketones,Urine Trace mg/dL (Negative); Leukocyte Esterase,Urine Small (Negative); Mucus,Urine Few per lpf (None-Few); Nitrite,Urine Positive (Negative); Protein,Urine Trace mg/dL (Neg-Trace); Specific Gravity,Urine 1.026 (1.010-1.025)
[2020-10-18 12:43] LABS: Basophils % 0.1 %; Eosinophils % 0.1 %; Hematocrit 28.7 % (35.3-44.9); Hemoglobin 9.1 g/dL (11.5-15.4); Immature Granulocytes % 0.6 % (0-4); Lymphocytes # 1.2 K/mcL (0.6-4.6); Lymphocytes % 10.2 %; Mean Corpuscular HGB Conc 31.7 g/dL (31.6-35.5); Mean Corpuscular Hemoglobin 27.1 pg (28.0-33.3); Mean Corpuscular Volume 85.4 fL (83.0-100.0); Mean Platelet Volume 10.1 fL (9.4-12.4); Monocytes # 0.6 K/mcL (0.0-1.3); Neutrophils # 9.9 K/mcL (1.6-8.9); Platelet Count 472 K/mcL (140-400); Red Blood Count 3.36 M/mcL (3.82-4.97); Red Cell Distribution Width 13.5 % (11.5-14.5); White Blood Count 11.7 K/mcL (4.3-11.1)
[2020-10-18 13:03] LABS: INR 1.3; Prothrombin Time 14.5 Seconds (9.4-12.1)
[2020-10-18 13:04] LABS: Alanine Aminotransferase < 3 Units/L (7-52); Albumin/Globulin Ratio 0.9 (1.1-2.2); Alkaline Phosphatase 95 Units/L (34-104); Aspartate Amino Transferase 11 Units/L (13-39); BUN/Creatinine Ratio 29 (6-26); Bilirubin,Direct 0.2 mg/dL (0.0-0.2); Bilirubin,Indirect 0.4 mg/dL (0.0-1.0); Bilirubin,Total 0.6 mg/dL (0.3-1.0); Blood Urea Nitrogen 14 mg/dL (8-23); Calcium 8.6 mg/dL (8.6-10.3); Carbon Dioxide 32 mEq/L (23-29); Chloride 98 mEq/L (98-107); Globulin 3.4 g/dL (2.4-3.5); Glucose 113 mg/dL (70-105); Magnesium 1.9 mg/dL (1.6-2.6); Osmolality,Calculated 285 (280-300); Phosphorous 3.4 mg/dL (2.7-4.5); Potassium 3.3 mEq/L (3.5-5.1); Sodium 137 mEq/L (136-145); Total Protein 6.4 g/dL (6.4-8.9); Troponin I < 0.03 ng/mL (< 0.04); eGFR For African Americans > 60 (> 60); eGFR For Non-African Americans > 60 (> 60)
[2020-10-18 13:06] LABS: Activated Partial Thrombo Time 26.9 Seconds (26.0-36.0)
[2020-10-18] MEDS ORDERED: Piperacillin/Tazobactam 3.375 GM in 0.9 % Sodium Chloride Mini Bag 100 ML IVPB ONE (14:31)
[2020-10-18] MEDS ORDERED: Naloxone 0.4 MG/ML INJ IVP PRN (17:56)
[2020-10-18] MEDS ORDERED: Ondansetron ODT 4 MG TAB.RAPDIS SL PRN (17:56)
[2020-10-18] MEDS ORDERED: Acetaminophen 325 MG TABLET PO PRN (18:01)
[2020-10-18] MEDS ORDERED: Potassium Chloride 40 MEQ, Lidocaine 1% 2 ML in 0.9 % Sodium Chloride 500 ML IVPB ONE (18:07)
[2020-10-18] MEDS ORDERED: Cholecalciferol (D-3) 1,000 UNIT (25MCG) TABLET PO SCH (18:15)
[2020-10-18] MEDS ORDERED: Ipratropium/Albuterol Neb 3 ML IH PRN (18:38)
[2020-10-18] MEDS: Glycopyrrolate 1 MG TABLET PO SCH (22:22)
[2020-10-18] MEDS: *HR* Heparin 5,000 UNIT/ML VIAL SQ SCH (22:22)
[2020-10-18] MEDS: Piperacillin/Tazobactam 3.375 GM in 0.9 % Sodium Chloride Mini Bag 100 ML IVPB SCH (23:51)
[2020-10-19] MEDS: *HR* Heparin 5,000 UNIT/ML VIAL SQ SCH ×3 (05:37→21:52)
[2020-10-19] MEDS: Piperacillin/Tazobactam 3.375 GM in 0.9 % Sodium Chloride Mini Bag 100 ML IVPB SCH ×3 (09:01→23:50)
[2020-10-19] MEDS: Cyanocobalamin (B-12) 1,000 MCG TABLET PO SCH (09:02)
[2020-10-19] MEDS: lisinopriL 10 MG TABLET PO SCH (09:02)
[2020-10-19] MEDS: Glycopyrrolate 1 MG TABLET PO SCH ×2 (09:02→19:56)
[2020-10-19] MEDS: Carbidopa/Levodopa 25/100 TABLET PO SCH (09:03)
[2020-10-19] MEDS: Sennosides/Docusate Sodium TABLET PO SCH (09:04)
[2020-10-19] MEDS: Furosemide 20 MG TABLET PO SCH (09:04)
[2020-10-19] MEDS: (Rotigotine [Neupro] 1 PATCH) TP SCH (09:23)
[2020-10-19] MEDS: PIMAVANSERIN TARTRATE 34 MG PO SCH (09:23)
[2020-10-19 10:19] LABS: Basophils % 0.4 %; Eosinophils % 0.2 %; Hematocrit 26.8 % (35.3-44.9); Hemoglobin 8.3 g/dL (11.5-15.4); Immature Granulocytes % 0.6 % (0-4); Lymphocytes # 1.5 K/mcL (0.6-4.6); Lymphocytes % 17.4 %; Mean Corpuscular Hemoglobin 26.5 pg (28.0-33.3); Mean Corpuscular Volume 85.6 fL (83.0-100.0); Mean Platelet Volume 10.2 fL (9.4-12.4); Monocytes # 0.5 K/mcL (0.0-1.3); Neutrophils # 6.4 K/mcL (1.6-8.9); Platelet Count 428 K/mcL (140-400); Red Blood Count 3.13 M/mcL (3.82-4.97); Red Cell Distribution Width 13.6 % (11.5-14.5); Segmented Neutrophils % 75.4 %; White Blood Count 8.5 K/mcL (4.3-11.1)
[2020-10-19 10:32] LABS: BUN/Creatinine Ratio 21 (6-26); Blood Urea Nitrogen 10 mg/dL (8-23); Calcium 8.1 mg/dL (8.6-10.3); Carbon Dioxide 28 mEq/L (23-29); Chloride 104 mEq/L (98-107); Glucose 94 mg/dL (70-105); Osmolality,Calculated 287 (280-300); Potassium 3.6 mEq/L (3.5-5.1); Sodium 139 mEq/L (136-145); eGFR For African Americans > 60 (> 60); eGFR For Non-African Americans > 60 (> 60)
[2020-10-19] MEDS ORDERED: MOM Conc 10 ML UD.LIQ PO PRN (18:46)
[2020-10-19] MEDS ORDERED: Haloperidol Lactate 5 MG/ML VIAL IM ONE (18:51)
[2020-10-20 03:10] LABS: Basophils % 0.3 %; Eosinophils % 0.5 %; Hematocrit 25.7 % (35.3-44.9); Hemoglobin 8.1 g/dL (11.5-15.4); Immature Granulocytes % 0.8 % (0-4); Lymphocytes # 1.8 K/mcL (0.6-4.6); Lymphocytes % 22.6 %; Mean Corpuscular HGB Conc 31.5 g/dL (31.6-35.5); Mean Corpuscular Hemoglobin 26.8 pg (28.0-33.3); Mean Corpuscular Volume 85.1 fL (83.0-100.0); Mean Platelet Volume 10.5 fL (9.4-12.4); Monocytes # 0.7 K/mcL (0.0-1.3); Monocytes % 9.3 %; Neutrophils # 5.2 K/mcL (1.6-8.9); Platelet Count 417 K/mcL (140-400); Red Blood Count 3.02 M/mcL (3.82-4.97); Red Cell Distribution Width 13.8 % (11.5-14.5); Segmented Neutrophils % 66.5 %; White Blood Count 7.8 K/mcL (4.3-11.1)
[2020-10-20 03:29] LABS: BUN/Creatinine Ratio 13 (6-26); Blood Urea Nitrogen 8 mg/dL (8-23); C-Reactive Protein 133 mg/L (Less than 10); Carbon Dioxide 26 mEq/L (23-29); Chloride 103 mEq/L (98-107); Glucose 88 mg/dL (70-105); Osmolality,Calculated 286 (280-300); Potassium 3.4 mEq/L (3.5-5.1); Sodium 139 mEq/L (136-145); eGFR For African Americans > 60 (> 60); eGFR For Non-African Americans > 60 (> 60)
[2020-10-20] MEDS: *HR* Heparin 5,000 UNIT/ML VIAL SQ SCH ×3 (05:03→21:59)
[2020-10-20] MEDS ORDERED: Sennosides/Docusate Sodium TABLET PO SCH (09:00)
[2020-10-20] MEDS: Sennosides/Docusate Sodium TABLET PO SCH (09:11)
[2020-10-20] MEDS: Carbidopa/Levodopa 25/100 TABLET PO SCH (09:11)
[2020-10-20] MEDS: Zinc Sulfate 220 MG CAPSULE PO SCH (09:11)
[2020-10-20] MEDS: Piperacillin/Tazobactam 3.375 GM in 0.9 % Sodium Chloride Mini Bag 100 ML IVPB SCH ×2 (09:11→15:43)
[2020-10-20] MEDS: lisinopriL 10 MG TABLET PO SCH (09:11)
[2020-10-20] MEDS: Cyanocobalamin (B-12) 1,000 MCG TABLET PO SCH (09:11)
[2020-10-20] MEDS: Glycopyrrolate 1 MG TABLET PO SCH ×2 (09:11→21:59)
[2020-10-20] MEDS: Furosemide 20 MG TABLET PO SCH (09:11)
[2020-10-20] MEDS: PIMAVANSERIN TARTRATE 34 MG PO SCH (09:13)
[2020-10-20] MEDS: (Rotigotine [Neupro] 1 PATCH) TP SCH (09:13)
[2020-10-20] MEDS: Ammonium Lactate 30 APPL/225 GM BOTTLE TP SCH (12:48)
[2020-10-21] MEDS: Piperacillin/Tazobactam 3.375 GM in 0.9 % Sodium Chloride Mini Bag 100 ML IVPB SCH ×3 (00:18→16:17)
[2020-10-21] MEDS: *HR* Heparin 5,000 UNIT/ML VIAL SQ SCH ×3 (05:46→21:38)
[2020-10-21 06:22] LABS: Basophils % 0.3 %; Eosinophils # 0.1 K/mcL (0.0-0.6); Hematocrit 27.6 % (35.3-44.9); Hemoglobin 8.6 g/dL (11.5-15.4); Immature Granulocytes % 0.7 % (0-4); Lymphocytes # 1.3 K/mcL (0.6-4.6); Lymphocytes % 16.5 %; Mean Corpuscular HGB Conc 31.2 g/dL (31.6-35.5); Mean Corpuscular Hemoglobin 27.2 pg (28.0-33.3); Mean Corpuscular Volume 87.3 fL (83.0-100.0); Mean Platelet Volume 10.7 fL (9.4-12.4); Monocytes # 0.3 K/mcL (0.0-1.3); Monocytes % 4.1 %; Neutrophils # 5.9 K/mcL (1.6-8.9); Platelet Count 428 K/mcL (140-400); Red Blood Count 3.16 M/mcL (3.82-4.97); Red Cell Distribution Width 14.1 % (11.5-14.5); Segmented Neutrophils % 77.4 %; White Blood Count 7.6 K/mcL (4.3-11.1)
[2020-10-21 06:23] LABS: BUN/Creatinine Ratio 13 (6-26); Blood Urea Nitrogen 9 mg/dL (8-23); Calcium 8.3 mg/dL (8.6-10.3); Carbon Dioxide 25 mEq/L (23-29); Chloride 106 mEq/L (98-107); Glucose 132 mg/dL (70-105); Osmolality,Calculated 291 (280-300); Potassium 3.3 mEq/L (3.5-5.1); Sodium 140 mEq/L (136-145); eGFR For African Americans > 60 (> 60); eGFR For Non-African Americans > 60 (> 60)
[2020-10-21] MEDS: Ammonium Lactate 30 APPL/225 GM BOTTLE TP SCH (09:51)
[2020-10-21] MEDS: Carbidopa/Levodopa 25/100 TABLET PO SCH (09:51)
[2020-10-21] MEDS: Glycopyrrolate 1 MG TABLET PO SCH ×2 (09:52→21:38)
[2020-10-21] MEDS: Sennosides/Docusate Sodium TABLET PO SCH (09:52)
[2020-10-21] MEDS: Zinc Sulfate 220 MG CAPSULE PO SCH (09:52)
[2020-10-21] MEDS: Furosemide 20 MG TABLET PO SCH (09:53)
[2020-10-21] MEDS: lisinopriL 10 MG TABLET PO SCH (09:53)
[2020-10-21] MEDS: Cyanocobalamin (B-12) 1,000 MCG TABLET PO SCH (09:53)
[2020-10-21] MEDS: PIMAVANSERIN TARTRATE 34 MG PO SCH (11:33)
[2020-10-21] MEDS: (Rotigotine [Neupro] 1 PATCH) TP SCH (11:33)
[2020-10-22] MEDS: Piperacillin/Tazobactam 3.375 GM in 0.9 % Sodium Chloride Mini Bag 100 ML IVPB SCH ×3 (00:15→15:56)
[2020-10-22] MEDS: *HR* Heparin 5,000 UNIT/ML VIAL SQ SCH ×3 (04:50→22:04)
[2020-10-22 05:16] LABS: Basophils % 0.3 %; Eosinophils # 0.1 K/mcL (0.0-0.6); Eosinophils % 1.3 %; Hematocrit 25.5 % (35.3-44.9); Hemoglobin 8.1 g/dL (11.5-15.4); Immature Granulocytes % 0.8 % (0-4); Lymphocytes # 1.7 K/mcL (0.6-4.6); Lymphocytes % 22.3 %; Mean Corpuscular HGB Conc 31.8 g/dL (31.6-35.5); Mean Corpuscular Hemoglobin 26.9 pg (28.0-33.3); Mean Corpuscular Volume 84.7 fL (83.0-100.0); Mean Platelet Volume 11.1 fL (9.4-12.4); Monocytes # 0.5 K/mcL (0.0-1.3); Monocytes % 6.5 %; Neutrophils # 5.1 K/mcL (1.6-8.9); Platelet Count 463 K/mcL (140-400); Red Blood Count 3.01 M/mcL (3.82-4.97); Red Cell Distribution Width 14.2 % (11.5-14.5); Segmented Neutrophils % 68.8 %; White Blood Count 7.4 K/mcL (4.3-11.1)
[2020-10-22 05:36] LABS: BUN/Creatinine Ratio 7 (6-26); Blood Urea Nitrogen 5 mg/dL (8-23); Calcium 8.2 mg/dL (8.6-10.3); Carbon Dioxide 27 mEq/L (23-29); Chloride 104 mEq/L (98-107); Glucose 107 mg/dL (70-105); Osmolality,Calculated 286 (280-300); Potassium 3.3 mEq/L (3.5-5.1); Sodium 139 mEq/L (136-145); eGFR For African Americans > 60 (> 60); eGFR For Non-African Americans > 60 (> 60)
[2020-10-22] MEDS: Cyanocobalamin (B-12) 1,000 MCG TABLET PO SCH (08:39)
[2020-10-22] MEDS: Sennosides/Docusate Sodium TABLET PO SCH (08:39)
[2020-10-22] MEDS: Glycopyrrolate 1 MG TABLET PO SCH ×3 (08:39→22:06)
[2020-10-22] MEDS: Carbidopa/Levodopa 25/100 TABLET PO SCH ×3 (08:39→22:07)
[2020-10-22] MEDS: Furosemide 20 MG TABLET PO SCH (08:39)
[2020-10-22] MEDS: lisinopriL 10 MG TABLET PO SCH (08:39)
[2020-10-22] MEDS: Zinc Sulfate 220 MG CAPSULE PO SCH (08:39)
[2020-10-22] MEDS: Ammonium Lactate 30 APPL/225 GM BOTTLE TP SCH (08:41)
[2020-10-23] MEDS: Piperacillin/Tazobactam 3.375 GM in 0.9 % Sodium Chloride Mini Bag 100 ML IVPB SCH ×3 (00:31→16:08)
[2020-10-23 05:57] LABS: Basophils % 0.4 %; Eosinophils # 0.2 K/mcL (0.0-0.6); Eosinophils % 2.2 %; Hematocrit 26.8 % (35.3-44.9); Hemoglobin 8.3 g/dL (11.5-15.4); Immature Granulocytes % 1.4 % (0-4); Lymphocytes % 25.7 %; Mean Platelet Volume 10.3 fL (9.4-12.4); Monocytes # 0.6 K/mcL (0.0-1.3); Monocytes % 7.2 %; Platelet Count 431 K/mcL (140-400); Red Blood Count 3.19 M/mcL (3.82-4.97); Red Cell Distribution Width 14.4 % (11.5-14.5); Segmented Neutrophils % 63.1 %; White Blood Count 7.8 K/mcL (4.3-11.1)
[2020-10-23 06:10] LABS: BUN/Creatinine Ratio 7 (6-26); Blood Urea Nitrogen 5 mg/dL (8-23); Calcium 8.4 mg/dL (8.6-10.3); Carbon Dioxide 29 mEq/L (23-29); Chloride 104 mEq/L (98-107); Glucose 98 mg/dL (70-105); Osmolality,Calculated 287 (280-300); Potassium 3.5 mEq/L (3.5-5.1); Sodium 140 mEq/L (136-145); eGFR For African Americans > 60 (> 60); eGFR For Non-African Americans > 60 (> 60)
[2020-10-23] MEDS: *HR* Heparin 5,000 UNIT/ML VIAL SQ SCH ×3 (06:34→20:27)
[2020-10-23] MEDS: Glycopyrrolate 1 MG TABLET PO SCH ×2 (09:04→20:21)
[2020-10-23] MEDS: lisinopriL 10 MG TABLET PO SCH (09:04)
[2020-10-23] MEDS: Carbidopa/Levodopa 25/100 TABLET PO SCH ×5 (09:04→20:21)
[2020-10-23] MEDS: Sennosides/Docusate Sodium TABLET PO SCH (09:04)
[2020-10-23] MEDS: Zinc Sulfate 220 MG CAPSULE PO SCH (09:05)
[2020-10-23] MEDS: Cyanocobalamin (B-12) 1,000 MCG TABLET PO SCH (09:05)
[2020-10-23] MEDS: Ammonium Lactate 30 APPL/225 GM BOTTLE TP SCH (09:05)
[2020-10-23] MEDS: Furosemide 20 MG TABLET PO SCH (09:05)
[2020-10-24] MEDS: Piperacillin/Tazobactam 3.375 GM in 0.9 % Sodium Chloride Mini Bag 100 ML IVPB SCH ×3 (00:11→15:13)
[2020-10-24] MEDS: Carbidopa/Levodopa 25/100 TABLET PO SCH ×3 (06:22→15:13)
[2020-10-24] MEDS: *HR* Heparin 5,000 UNIT/ML VIAL SQ SCH ×2 (06:23→15:13)
[2020-10-24] MEDS: lisinopriL 10 MG TABLET PO SCH (08:28)
[2020-10-24] MEDS: Furosemide 20 MG TABLET PO SCH (08:28)
[2020-10-24] MEDS: Ammonium Lactate 30 APPL/225 GM BOTTLE TP SCH (08:29)
[2020-10-24] MEDS: Sennosides/Docusate Sodium TABLET PO SCH (08:29)
[2020-10-24] MEDS: Zinc Sulfate 220 MG CAPSULE PO SCH (08:29)
[2020-10-24] MEDS: Cyanocobalamin (B-12) 1,000 MCG TABLET PO SCH (08:29)
[2020-10-24] MEDS: Glycopyrrolate 1 MG TABLET PO SCH (08:29)
[2020-10-24 08:31] LABS: Basophils % 0.4 %; Eosinophils # 0.2 K/mcL (0.0-0.6); Eosinophils % 2.4 %; Hematocrit 27.1 % (35.3-44.9); Hemoglobin 8.5 g/dL (11.5-15.4); Immature Granulocytes % 1.3 % (0-4); Lymphocytes # 1.6 K/mcL (0.6-4.6); Lymphocytes % 20.6 %; Mean Corpuscular HGB Conc 31.4 g/dL (31.6-35.5); Mean Corpuscular Hemoglobin 26.6 pg (28.0-33.3); Mean Corpuscular Volume 84.7 fL (83.0-100.0); Mean Platelet Volume 10.3 fL (9.4-12.4); Monocytes # 0.5 K/mcL (0.0-1.3); Monocytes % 6.3 %; Neutrophils # 5.4 K/mcL (1.6-8.9); Platelet Count 440 K/mcL (140-400); Red Cell Distribution Width 14.5 % (11.5-14.5); White Blood Count 7.8 K/mcL (4.3-11.1)
[2020-10-24 08:53] LABS: BUN/Creatinine Ratio 10 (6-26); Blood Urea Nitrogen 7 mg/dL (8-23); Calcium 8.5 mg/dL (8.6-10.3); Carbon Dioxide 28 mEq/L (23-29); Chloride 104 mEq/L (98-107); Glucose 103 mg/dL (70-105); Osmolality,Calculated 288 (280-300); Potassium 3.7 mEq/L (3.5-5.1); Sodium 140 mEq/L (136-145); eGFR For African Americans > 60 (> 60); eGFR For Non-African Americans > 60 (> 60)
[2020-10-24 10:59] VITALS: BP 125/64
== END 2020-10-24 15:51 | DRG 593 ==
LOC: 3ANU 10:53 → EMEROOARM 10:53 → SUATTDRO 15:19 → 3ANU 18:43 → SUATTDRO 10-20 13:54
PROVIDERS: ADMIT Internal Medicine; ATTEND Student in an Organized Health Care Education/Training Program

== ENCOUNTER 2021-06-03 09:23 | Inpatient (IN) ==
[2021-06-03] MEDS ORDERED: 0.9 % Sodium Chloride 500 ML IVC ONE (10:55)
[2021-06-03 11:22] LABS: Basophils % 0.4 %; Eosinophils # 0.1 K/mcL (0.0-0.6); Eosinophils % 1.3 %; Hematocrit 24.8 % (35.3-44.9); Hemoglobin 7.6 g/dL (11.5-15.4); Lymphocytes # 1.7 K/mcL (0.6-4.6); Lymphocytes % 16.8 %; Mean Corpuscular HGB Conc 30.6 g/dL (31.6-35.5); Mean Corpuscular Volume 87.9 fL (83.0-100.0); Mean Platelet Volume 10.3 fL (9.4-12.4); Monocytes # 0.6 K/mcL (0.0-1.3); Neutrophils # 7.7 K/mcL (1.6-8.9); Platelet Count 524 K/mcL (140-400); Red Blood Count 2.82 M/mcL (3.82-4.97); Red Cell Distribution Width 14.3 % (11.5-14.5); Segmented Neutrophils % 74.5 %; White Blood Count 10.3 K/mcL (4.3-11.1)
[2021-06-03 12:04] LABS: Alanine Aminotransferase 3 Units/L (7-52); Albumin 2.6 g/dL (3.5-5.7); Albumin/Globulin Ratio 0.8 (1.1-2.2); Alkaline Phosphatase 80 Units/L (34-104); Aspartate Amino Transferase 11 Units/L (13-39); BUN/Creatinine Ratio 21 (6-26); Bilirubin,Total 0.2 mg/dL (0.3-1.0); Blood Urea Nitrogen 13 mg/dL (8-23); Calcium 8.2 mg/dL (8.6-10.3); Carbon Dioxide 24 mEq/L (23-29); Chloride 104 mEq/L (98-107); Globulin 3.2 g/dL (2.4-3.5); Glucose 97 mg/dL (70-105); Osmolality,Calculated 284 (280-300); Sodium 137 mEq/L (136-145); Total Protein 5.8 g/dL (6.4-8.9); eGFR For African Americans > 60 (> 60); eGFR For Non-African Americans > 60 (> 60)
[2021-06-03] MEDS ORDERED: MOM Conc 10 ML UD.LIQ PO PRN (15:27)
[2021-06-03] MEDS ORDERED: Melatonin 3 MG TABLET PO PRN (15:27)
[2021-06-03] MEDS ORDERED: Naloxone 0.4 MG/ML INJ IVP PRN (15:27)
[2021-06-03] MEDS ORDERED: Ipratropium/Albuterol Neb 3 ML IH PRN (15:30)
[2021-06-03] MEDS ORDERED: Acetaminophen 325 MG TABLET PO PRN (15:30)
[2021-06-03] MEDS ORDERED: Morphine Sulfate Oral CONC 10 MG/0.5 ML ORAL.SYG PO PRN (16:53)
[2021-06-03] MEDS: *HR* Heparin 5,000 UNIT/ML VIAL SQ SCH (21:24)
[2021-06-03] MEDS ORDERED: Morphine Sulfate Oral CONC 10 MG/0.5 ML ORAL.SYG PO SCH (21:30)
[2021-06-03] MEDS: Carbidopa/Levodopa 25/100 TABLET PO SCH (21:32)
[2021-06-03] MEDS: Glycopyrrolate 1 MG TABLET PO SCH (21:34)
[2021-06-03] MEDS: Nystatin Ointment 15 GM TUBE TP SCH (21:35)
[2021-06-03] MEDS: Mirtazapine 15 MG TABLET PO SCH (21:41)
[2021-06-04] MEDS: *HR* Heparin 5,000 UNIT/ML VIAL SQ SCH ×3 (05:06→21:55)
[2021-06-04 06:16] LABS: Hematocrit 23.5 % (35.3-44.9); Hemoglobin 7.5 g/dL (11.5-15.4); Mean Corpuscular HGB Conc 31.9 g/dL (31.6-35.5); Mean Corpuscular Hemoglobin 27.6 pg (28.0-33.3); Mean Corpuscular Volume 86.4 fL (83.0-100.0); Red Blood Count 2.72 M/mcL (3.82-4.97); White Blood Count 8.2 K/mcL (4.3-11.1)
[2021-06-04 06:17] LABS: Band Neutrophils % 28.4 % (0-4); Basophils % 0.5 %; Eosinophils # 0.1 K/mcL (0.0-0.6); Eosinophils % 1.6 %; Lymphocytes # 2.3 K/mcL (0.6-4.6); Lymphocytes % 28.4 %; Mean Platelet Volume 10.1 fL (9.4-12.4); Monocytes # 0.5 K/mcL (0.0-1.3); Monocytes % 5.8 %; Neutrophils # 7.5 K/mcL (1.6-8.9); Platelet Count 490 K/mcL (140-400); Red Cell Distribution Width 14.5 % (11.5-14.5); Segmented Neutrophils % 62.7 %
[2021-06-04 06:23] LABS: BUN/Creatinine Ratio 17 (6-26); Blood Urea Nitrogen 11 mg/dL (8-23); Calcium 8.3 mg/dL (8.6-10.3); Carbon Dioxide 22 mEq/L (23-29); Chloride 106 mEq/L (98-107); Glucose 81 mg/dL (70-105); Osmolality,Calculated 286 (280-300); Potassium 3.9 mEq/L (3.5-5.1); Sodium 139 mEq/L (136-145); eGFR For African Americans > 60 (> 60); eGFR For Non-African Americans > 60 (> 60)
[2021-06-04] MEDS: Sennosides/Docusate Sodium TABLET PO SCH (07:36)
[2021-06-04] MEDS: Furosemide 20 MG TABLET PO SCH (07:36)
[2021-06-04] MEDS: Carbidopa/Levodopa 25/100 TABLET PO SCH ×3 (07:36→22:01)
[2021-06-04] MEDS: Glycopyrrolate 1 MG TABLET PO SCH ×2 (07:36→21:53)
[2021-06-04] MEDS: lisinopriL 10 MG TABLET PO SCH (07:37)
[2021-06-04] MEDS ORDERED: levoFLOXacin 750 MG TABLET PO SCH (11:00)
[2021-06-04] MEDS: Nystatin Ointment 15 GM TUBE TP SCH ×2 (11:18→22:02)
[2021-06-04] MEDS ORDERED: Piperacillin/Tazobactam 3.375 GM in 0.9 % Sodium Chloride Mini Bag 100 ML IVPB SCH (16:00)
[2021-06-04] MEDS ORDERED: 0.9 % Sodium Chloride 500 ML IVC ONE ×2 (16:01→18:07)
[2021-06-04] MEDS: Mirtazapine 15 MG TABLET PO SCH (21:54)
[2021-06-05 02:19] LABS: BUN/Creatinine Ratio 14 (6-26); Blood Urea Nitrogen 11 mg/dL (8-23); Calcium 7.7 mg/dL (8.6-10.3); Carbon Dioxide 23 mEq/L (23-29); Chloride 107 mEq/L (98-107); Glucose 102 mg/dL (70-105); Osmolality,Calculated 284 (280-300); Potassium 3.7 mEq/L (3.5-5.1); Sodium 137 mEq/L (136-145); eGFR For African Americans > 60 (> 60); eGFR For Non-African Americans > 60 (> 60)
[2021-06-05 02:20] LABS: Hematocrit 21.3 % (35.3-44.9); Hemoglobin 6.6 g/dL (11.5-15.4); Mean Corpuscular Hemoglobin 26.9 pg (28.0-33.3); Mean Corpuscular Volume 86.9 fL (83.0-100.0); Mean Platelet Volume 9.8 fL (9.4-12.4); Platelet Count 411 K/mcL (140-400); Red Blood Count 2.45 M/mcL (3.82-4.97); Red Cell Distribution Width 14.3 % (11.5-14.5); White Blood Count 7.5 K/mcL (4.3-11.1)
[2021-06-05] MEDS: *HR* Heparin 5,000 UNIT/ML VIAL SQ SCH (05:44)
[2021-06-05] MEDS: Sennosides/Docusate Sodium TABLET PO SCH (08:57)
[2021-06-05] MEDS: Furosemide 20 MG TABLET PO SCH (08:57)
[2021-06-05] MEDS: Glycopyrrolate 1 MG TABLET PO SCH ×2 (08:57→20:41)
[2021-06-05] MEDS: Calcium Gluconate 1gm/50mL 1 GM/50 ML BAG IVPB SCH ×2 (08:59→10:11)
[2021-06-05] MEDS: Carbidopa/Levodopa 25/100 TABLET PO SCH ×3 (09:00→20:48)
[2021-06-05] MEDS: Nystatin Ointment 15 GM TUBE TP SCH ×2 (09:00→22:50)
[2021-06-05] MEDS ORDERED: levoFLOXacin 750 MG/150 ML 750 MG/150 ML BAG IVPB SCH (09:00)
[2021-06-05] MEDS: lisinopriL 10 MG TABLET PO SCH (09:01)
[2021-06-05] MEDS ORDERED: 0.9 % Sodium Chloride 250 ML ONE (10:04)
[2021-06-05] MEDS ORDERED: Ertapenem 1,000 MG in 0.9 % Sodium Chloride Mini Bag 100 ML IVPB SCH ×2 (11:00→17:00)
[2021-06-05] MEDS ORDERED: Piperacillin/Tazobactam 3.375 GM in 0.9 % Sodium Chloride Mini Bag 100 ML IVPB SCH (16:00)
[2021-06-05 17:32] LABS: Hematocrit 26.7 % (35.3-44.9)
[2021-06-05 17:33] LABS: Hemoglobin 8.5 g/dL (11.5-15.4)
[2021-06-05] MEDS: Mirtazapine 15 MG TABLET PO SCH (20:41)
[2021-06-06 01:18] LABS: Hematocrit 25.7 % (35.3-44.9); Mean Corpuscular HGB Conc 31.1 g/dL (31.6-35.5); Mean Corpuscular Hemoglobin 26.7 pg (28.0-33.3); Mean Corpuscular Volume 85.7 fL (83.0-100.0); Mean Platelet Volume 10.1 fL (9.4-12.4); Platelet Count 410 K/mcL (140-400); Red Cell Distribution Width 14.1 % (11.5-14.5); White Blood Count 7.6 K/mcL (4.3-11.1)
[2021-06-06 01:38] LABS: BUN/Creatinine Ratio 14 (6-26); Blood Urea Nitrogen 10 mg/dL (8-23); Calcium 7.9 mg/dL (8.6-10.3); Carbon Dioxide 24 mEq/L (23-29); Chloride 104 mEq/L (98-107); Glucose 100 mg/dL (70-105); Osmolality,Calculated 283 (280-300); Potassium 3.7 mEq/L (3.5-5.1); Sodium 137 mEq/L (136-145); eGFR For African Americans > 60 (> 60); eGFR For Non-African Americans > 60 (> 60)
[2021-06-06] MEDS: lisinopriL 10 MG TABLET PO SCH (07:55)
[2021-06-06] MEDS: Glycopyrrolate 1 MG TABLET PO SCH (07:56)
[2021-06-06] MEDS: Sennosides/Docusate Sodium TABLET PO SCH (07:56)
[2021-06-06] MEDS: Furosemide 20 MG TABLET PO SCH (07:56)
[2021-06-06] MEDS: Nystatin Ointment 15 GM TUBE TP SCH (07:59)
[2021-06-06] MEDS: Carbidopa/Levodopa 25/100 TABLET PO SCH (08:00)
[2021-06-06] MEDS ORDERED: Calcium Gluconate 1gm/50mL 1 GM/50 ML BAG IVPB ONE (08:30)
[2021-06-06 10:45] VITALS: BP 78/54; PULSE 91; TEMP 98.6; O2SAT 89
== END 2021-06-06 14:06 | disposition hospice, inpatient (51) | DRG 539 ==
LOC: EMEROOARM 09:23 → 3ANU 09:23 → SUATTDRO 16:04 → 3ANU 17:00 → 3BNU 06-05 21:44
PROVIDERS: ADMIT Internal Medicine; ATTEND Internal Medicine